=== PATIENT | male | born 1945 | race Caucasian/White ===

== ENCOUNTER 2017-08-13 02:46 | Inpatient (IN) | payer OTHER ==
[~2017-08-13] VITALS: Ht 177.8 cm; Wt 116.0 kg
[~2017-08-13 02:46] MED LIST: ACTOS15 MG PO; CARDIZEM CD240 MG PO; COUMADIN2.5 MG PO; SYNTHROID200 MCG PO; TENORMIN50 MG PO; ZOCOR20 MG PO; lopid
[2017-08-13 03:38] LABS: HEMOGLOBIN 12.5 G/DL (12.5-16.6); MCH 27.3 PG (29.0-34.0); MCHC 32.1 G/DL (30.0-36.0); MCV 85.2 FL (86-99); PLATELET COUNT 260 K/uL (156-360); RBC DIS.WIDTH-SD 48.9 % (39-53); RED BLOOD COUNT 4.58 M/uL (4.00-5.50); WHITE BLOOD COUNT 11.7 K/uL (4.1-10.2)
[2017-08-13 04:05] LABS: ALBUMIN 3.6 g/dL (3.2-4.8)
[2017-08-13 04:06] LABS: CHLORIDE 109 mEq/L (99-109); POTASSIUM 3.7 mEq/L (3.7-5.4); SODIUM 141 mEq/L (136-147)
[2017-08-13 04:08] LABS: GLUCOSE 109 mg/dL (70-99); TOTAL PROTEIN 7.6 g/dL (6.4-8.3)
[2017-08-13 04:10] LABS: TOTAL BILIRUBIN 1.6 mg/dL (0.0-1.0)
[2017-08-13 04:11] LABS: ALKALINE PHOSPHATASE 78 IU/L (3-129)
[2017-08-13 04:12] LABS: CREATININE 0.8 mg/dL (0.6-1.3); GFR ESTIMATE (CALCULATED) > 59 mL/min/ (58.99-99999)
[2017-08-13 04:13] LABS: AST (GOT) 17 IU/L (2-34); UREA NITROGEN (BUN) 11 mg/dL (9-23)
[2017-08-13 04:15] LABS: ALT (GPT) 8 IU/L (3-49); LIPASE 11 U/L (1.0-51.0)
[2017-08-13 04:16] LABS: TROP-I INTERPRETATION NEGATIVE; TROPONIN-I < 0.01 ng/mL (0.0-0.30)
[2017-08-13 04:31] LABS: PTT 46.2 SEC (25-37)
[2017-08-13 04:41] LABS: INTER. NORMALIZED RATIO 4.5
[2017-08-13 05:51] LABS: BASE EXCESS -1.8 mEq/L (-3 to +3); BICARBONATE 22.1 mEq/L (22-26); CARBOXY HGB 2.9 % (0-5); COMMENTS - BLOOD GASES C+; DEVICE HHFNC; FI02 100 %; METHEMOGLOBIN 1.1 % (0-1.5); O2 FLOW 50 L/MIN; PCO2 34 mm Hg (35-45); PO2 186 mm Hg (80-100); SITE LB; TOTAL RESP RATE 22 resp/min; pH 7.42 (7.35-7.45)
[2017-08-13] MEDS ORDERED: CARDIZEM CD360 MG PO (07:32)
[2017-08-13] MEDS ORDERED: SYNTHROID137 MCG PO (07:32)
[2017-08-13] MEDS ORDERED: DIOVAN80 MG PO (07:33)
[2017-08-13] MEDS ORDERED: CRESTOR10 MG PO (07:33)
[2017-08-13] MEDS ORDERED: LOPRESSOR100 M1 PO (07:33)
[2017-08-13] MEDS ORDERED: GLUCOPHAGE850 MG PO (07:33)
[2017-08-13] MEDS ORDERED: CYANOCOBAL1000 MCG/2 IM (07:34)
[2017-08-13] MEDS ORDERED: ULTRAM50 MG PO (07:34)
[2017-08-13 13:13] VITALS: BP 139/74
[2017-08-13 17:27] VITALS: BP 140/75
[2017-08-13 20:20] VITALS: BP 162/84
[2017-08-14 00:09] VITALS: BP 158/99
[2017-08-14 03:24] VITALS: BP 125/72
[2017-08-14 05:50] LABS: CHLORIDE 106 MEQ/L (99-109); CREATININE 0.8 MG/DL (0.6-1.3); GFR ESTIMATE (CALCULATED) > 59 mL/min/ (58.99-99999); GLUCOSE 111 mg/dL (70-99); POTASSIUM 3.3 MEQ/L (3.7-5.4); SODIUM 141 MEQ/L (136-147); UREA NITROGEN (BUN) 14 mg/dL (9-23)
[2017-08-14 08:58] VITALS: BP 138/61
[2017-08-14 09:55] LABS: THYROTROPIN (TSH) 4.1 MIU/L (0.4-5.5)
[2017-08-14 10:11] LABS: TROP-I INTERPRETATION NEGATIVE; TROPONIN-I 0.02 ng/mL (0.0-0.30)
[2017-08-14 12:46] VITALS: BP 115/74
[2017-08-14 15:21] LABS: TROP-I INTERPRETATION NEGATIVE; TROPONIN-I 0.02 ng/mL (0.0-0.30)
[2017-08-14 16:14] LABS: INTER. NORMALIZED RATIO 3.3
[2017-08-14 20:25] VITALS: BP 148/89
[2017-08-14 21:57] LABS: TROP-I INTERPRETATION NEGATIVE; TROPONIN-I 0.01 ng/mL (0.0-0.30)
[2017-08-14 22:53] VITALS: BP 114/65
[2017-08-15 05:03] VITALS: BP 140/89
[2017-08-15 05:40] LABS: BASOPHIL (%) 0.7 % (0-1); BASOPHIL COUNT 0.1 K/uL (0-0.1); EOSINOPHIL (%) 3.3 % (0-5); EOSINOPHIL COUNT 0.3 K/uL (0-0.3); HEMOGLOBIN 10.9 G/DL (12.5-16.6); IMMATURE GRANULOCYTE (%) 0.3 % (0.0-0.7); LYMPHOCYTE (%) 18.8 % (15-42); LYMPHOCYTE COUNT 1.4 K/uL (1.0-2.8); MCH 26.9 PG (29.0-34.0); MCHC 31.1 G/DL (30.0-36.0); MCV 86.4 FL (86-99); MONOCYTE (%) 8.7 % (3-12); MONOCYTE COUNT 0.7 K/uL (0-0.8); NEUTROPHIL (%) 68.2 % (45-76); NEUTROPHIL COUNT 5.2 K/uL (1.8-6.4); PLATELET COUNT 260 K/uL (156-360); RED BLOOD COUNT 4.05 M/uL (4.00-5.50); WHITE BLOOD COUNT 7.6 K/uL (4.1-10.2)
[2017-08-15 05:41] LABS: INTER. NORMALIZED RATIO 2.8
[2017-08-15 06:17] LABS: ALBUMIN 3.4 G/DL (3.2-4.8); ALKALINE PHOSPHATASE 67 IU/L (3-129); ALT (GPT) 16 IU/L (3-49); AST (GOT) 41 IU/L (2-34); CHLORIDE 105 MEQ/L (99-109); CREATININE 0.9 MG/DL (0.6-1.3); GFR ESTIMATE (CALCULATED) > 59 mL/min/ (58.99-99999); GLUCOSE 105 mg/dL (70-99); POTASSIUM 3.4 MEQ/L (3.7-5.4); SODIUM 142 MEQ/L (136-147); TOTAL BILIRUBIN 1.1 MG/DL (0.0-1.0); TOTAL PROTEIN 6.5 G/DL (6.4-8.3); UREA NITROGEN (BUN) 15 mg/dL (9-23)
[2017-08-15 08:12] VITALS: BP 115/58
[2017-08-15 10:06] LABS: HEMOGLOBIN A1c (GLYCOHEMOGLOB) 5.9 % (Below 5.7)
[2017-08-15 12:52] VITALS: BP 142/70
[2017-08-15 15:11] VITALS: BP 106/70
[2017-08-15 20:55] VITALS: BP 134/68
[2017-08-15 23:54] VITALS: BP 138/72
[2017-08-16 02:49] VITALS: BP 160/90
[2017-08-16 04:56] VITALS: BP 154/74
[2017-08-16 05:32] LABS: INTER. NORMALIZED RATIO 2.6
[2017-08-16 06:18] VITALS: BP 134/84
[2017-08-16 07:29] VITALS: BP 142/93
[2017-08-16 08:37] LABS: HEMATOCRIT 38.8 % (38.0-50.0); HEMOGLOBIN 11.9 G/DL (12.5-16.6); MCH 26.3 PG (29.0-34.0); MCHC 30.7 G/DL (30.0-36.0); MCV 85.7 FL (86-99); PLATELET COUNT 322 K/uL (156-360); RBC DIS.WIDTH-CV 15.7 % (11.8-14.6); RBC DIS.WIDTH-SD 48.8 % (39-53); RED BLOOD COUNT 4.53 M/uL (4.00-5.50); WHITE BLOOD COUNT 10.4 K/uL (4.1-10.2)
[2017-08-16 09:00] LABS: CHLORIDE 102 MEQ/L (99-109); CREATININE 0.9 MG/DL (0.6-1.3); GFR ESTIMATE (CALCULATED) > 59 mL/min/ (58.99-99999); SODIUM 136 MEQ/L (136-147); UREA NITROGEN (BUN) 18 mg/dL (9-23)
[2017-08-16 09:01] LABS: GLUCOSE 190 mg/dL (70-99); POTASSIUM 4.1 MEQ/L (3.7-5.4)
[2017-08-16 12:00] VITALS: BP 111/69
[2017-08-16 19:28] VITALS: BP 123/95
[2017-08-17 01:33] VITALS: BP 133/77
[2017-08-17 03:16] VITALS: BP 121/84
[2017-08-17 05:18] LABS: BASOPHIL (%) 0.1 % (0-1); EOSINOPHIL (%) 0 % (0-5); HEMATOCRIT 36.8 % (38.0-50.0); HEMOGLOBIN 11.8 G/DL (12.5-16.6); IMMATURE GRANULOCYTE (%) 0.8 % (0.0-0.7); LYMPHOCYTE (%) 4.7 % (15-42); LYMPHOCYTE COUNT 0.8 K/uL (1.0-2.8); MCH 27.3 PG (29.0-34.0); MCHC 32.1 G/DL (30.0-36.0); MONOCYTE (%) 1.5 % (3-12); MONOCYTE COUNT 0.2 K/uL (0-0.8); NEUTROPHIL (%) 92.9 % (45-76); NEUTROPHIL COUNT 15.3 K/uL (1.8-6.4); PLATELET COUNT 332 K/uL (156-360); RBC DIS.WIDTH-CV 15.8 % (11.8-14.6); RBC DIS.WIDTH-SD 48.5 % (39-53); RED BLOOD COUNT 4.33 M/uL (4.00-5.50); WHITE BLOOD COUNT 16.5 K/uL (4.1-10.2)
[2017-08-17 06:02] LABS: INTER. NORMALIZED RATIO 2.4
[2017-08-17 06:07] LABS: ALBUMIN 3.6 G/DL (3.2-4.8); ALKALINE PHOSPHATASE 80 IU/L (3-129); CHLORIDE 102 MEQ/L (99-109); GFR ESTIMATE (CALCULATED) > 59 mL/min/ (58.99-99999); GLUCOSE 162 mg/dL (70-99); POTASSIUM 4.1 MEQ/L (3.7-5.4); SODIUM 138 MEQ/L (136-147); TOTAL PROTEIN 6.9 G/DL (6.4-8.3); UREA NITROGEN (BUN) 20 mg/dL (9-23)
[2017-08-17 06:18] LABS: ALT (GPT) 83 IU/L (3-49); AST (GOT) 110 IU/L (2-34); TOTAL BILIRUBIN 0.6 MG/DL (0.0-1.0)
[2017-08-17 09:00] VITALS: BP 122/83
[2017-08-17 09:54] LABS: BASE EXCESS -0.7 mEq/L (-3 to +3); BICARBONATE 23.4 mEq/L (22-26); CARBOXY HGB 2.3 % (0-5); METHEMOGLOBIN 1.8 % (0-1.5); PCO2 36 mm Hg (35-45); PO2 39 mm Hg (80-100); pH 7.42 (7.35-7.45)
[2017-08-17 09:55] LABS: COMMENTS - BLOOD GASES A+C+; DEVICE NC; O2 FLOW 2 L/MIN; SITE LRAD; TOTAL RESP RATE 22 resp/min
[2017-08-17 11:45] VITALS: BP 120/88
[2017-08-17 13:29] LABS: BASE EXCESS -1.1 mEq/L (-3 to +3); BICARBONATE 23.5 mEq/L (22-26); CARBOXY HGB 2.7 % (0-5); COMMENTS - BLOOD GASES A+C+; DEVICE NC; METHEMOGLOBIN 1.6 % (0-1.5); O2 FLOW 4 L/MIN; PCO2 38 mm Hg (35-45); PO2 89 mm Hg (80-100); SITE LRAD; TOTAL RESP RATE 18 resp/min
[2017-08-17 16:44] VITALS: BP 118/86
[2017-08-17 19:29] VITALS: BP 136/90
[2017-08-18] VITALS: BP 132/64; BP 158/88
[2017-08-18 05:16] LABS: BASOPHIL (%) 0.1 % (0-1); EOSINOPHIL (%) 0 % (0-5); HEMATOCRIT 38.2 % (38.0-50.0); HEMOGLOBIN 12.1 G/DL (12.5-16.6); IMMATURE GRANULOCYTE (%) 0.5 % (0.0-0.7); LYMPHOCYTE (%) 6.6 % (15-42); MCH 27.1 PG (29.0-34.0); MCHC 31.7 G/DL (30.0-36.0); MCV 85.5 FL (86-99); MONOCYTE (%) 6.1 % (3-12); MONOCYTE COUNT 0.9 K/uL (0-0.8); NEUTROPHIL (%) 86.7 % (45-76); NEUTROPHIL COUNT 12.5 K/uL (1.8-6.4); PLATELET COUNT 289 K/uL (156-360); RBC DIS.WIDTH-CV 15.8 % (11.8-14.6); RBC DIS.WIDTH-SD 48.9 % (39-53); RED BLOOD COUNT 4.47 M/uL (4.00-5.50); WHITE BLOOD COUNT 14.5 K/uL (4.1-10.2)
[2017-08-18 05:24] LABS: INTER. NORMALIZED RATIO 2.4
[2017-08-18 05:50] LABS: ALBUMIN 3.3 G/DL (3.2-4.8); ALKALINE PHOSPHATASE 66 IU/L (3-129); ALT (GPT) 95 IU/L (3-49); AST (GOT) 82 IU/L (2-34); CHLORIDE 102 MEQ/L (99-109); GFR ESTIMATE (CALCULATED) > 59 mL/min/ (58.99-99999); GLUCOSE 142 mg/dL (70-99); POTASSIUM 3.8 MEQ/L (3.7-5.4); SODIUM 139 MEQ/L (136-147); TOTAL BILIRUBIN 0.5 MG/DL (0.0-1.0); TOTAL PROTEIN 6.6 G/DL (6.4-8.3); UREA NITROGEN (BUN) 29 mg/dL (9-23)
[2017-08-18 07:16] VITALS: BP 137/86
[2017-08-18 11:09] VITALS: BP 135/79
[2017-08-18 12:12] LABS: APPEARANCE CLEAR ((CLEAR)); BILIRUBIN NEGATIVE; BLOOD NEGATIVE; COLOR YELLOW ((YELLOW)); GLUCOSE (STRIP) NEGATIVE; KETONES NEGATIVE; LEUKOCYTES NEGATIVE; NITRITE NEGATIVE; PROTEIN (STRIP) NEGATIVE; SPECIFIC GRAVITY 1.014 (1.000-1.030); UCUL ADDED? NO; UROBILINOGEN 0.2 MG/DL (0.2-1.0)
[2017-08-18 15:39] VITALS: BP 155/76
[2017-08-18 20:00] VITALS: BP 131/70
[2017-08-19] VITALS (7 sets, daily range): BP systolic 130–151; BP diastolic 67–92
[2017-08-19 05:18] LABS: BASOPHIL (%) 0 % (0-1); EOSINOPHIL (%) 0.5 % (0-5); HEMATOCRIT 37.1 % (38.0-50.0); HEMOGLOBIN 11.4 G/DL (12.5-16.6); IMMATURE GRANULOCYTE (%) 0.5 % (0.0-0.7); LYMPHOCYTE (%) 19.9 % (15-42); LYMPHOCYTE COUNT 1.7 K/uL (1.0-2.8); MCH 26.7 PG (29.0-34.0); MCHC 30.7 G/DL (30.0-36.0); MCV 86.9 FL (86-99); MONOCYTE (%) 11.1 % (3-12); MONOCYTE COUNT 0.9 K/uL (0-0.8); NEUTROPHIL COUNT 5.7 K/uL (1.8-6.4); PLATELET COUNT 253 K/uL (156-360); RBC DIS.WIDTH-CV 15.7 % (11.8-14.6); RBC DIS.WIDTH-SD 49.6 % (39-53); RED BLOOD COUNT 4.27 M/uL (4.00-5.50); WHITE BLOOD COUNT 8.4 K/uL (4.1-10.2)
[2017-08-19 05:38] LABS: INTER. NORMALIZED RATIO 2.6
[2017-08-19 06:02] LABS: ALBUMIN 3.1 G/DL (3.2-4.8); ALKALINE PHOSPHATASE 65 IU/L (3-129); ALT (GPT) 122 IU/L (3-49); AST (GOT) 108 IU/L (2-34); CHLORIDE 108 MEQ/L (99-109); GFR ESTIMATE (CALCULATED) > 59 mL/min/ (58.99-99999); GLUCOSE 133 mg/dL (70-99); POTASSIUM 3.8 MEQ/L (3.7-5.4); SODIUM 143 MEQ/L (136-147); TOTAL BILIRUBIN 0.4 MG/DL (0.0-1.0); TOTAL PROTEIN 6.4 G/DL (6.4-8.3); UREA NITROGEN (BUN) 26 mg/dL (9-23)
[2017-08-19 15:22] LABS: BASE EXCESS 1.1 mEq/L (-3 to +3); BICARBONATE 25.1 mEq/L (22-26); CARBOXY HGB 2.6 % (0-5); COMMENTS - BLOOD GASES A+C+; DEVICE NC; METHEMOGLOBIN 1.2 % (0-1.5); O2 FLOW 2 L/MIN; PCO2 37 mm Hg (35-45); PO2 68 mm Hg (80-100); SITE LR; pH 7.44 (7.35-7.45)
[2017-08-20 03:48] VITALS: BP 133/63
[2017-08-20 05:15] LABS: INTER. NORMALIZED RATIO 2.4
[2017-08-20 07:45] VITALS: BP 159/80
[2017-08-20] MEDS ORDERED: DOXYCYCLINE HY100 M3 PO (10:55)
[2017-08-20] MEDS ORDERED: LOPRESSOR100 M1 PO (10:56)
[2017-08-20] MEDS ORDERED: SPIRIVA RESPIMAT4 GM IH (10:56)
[2017-08-20] MEDS ORDERED: DIGOXIN250 MCG PO (10:56)
[2017-08-20] MEDS ORDERED: TRAZODONE HCL50 MG PO (10:57)
[2017-08-20] MEDS ORDERED: KLOR-CON M1010 MEQ PO (10:57)
[2017-08-20] MEDS ORDERED: CARDIZEM CD360 MG PO (10:57)
[2017-08-20] MEDS ORDERED: FUROSEMIDE40 MG PO (10:57)
[2017-08-20] MEDS ORDERED: ADVAIR 100/501 DISK IH (10:58)
[2017-08-20] MEDS ORDERED: DUONEB 2.5-0.5 M3 ML AEROSOL (10:58)
[2017-08-20] MEDS ORDERED: AERONEB GO NEB1 EACH MC (10:59)
[2017-08-20 12:12] VITALS: BP 145/90
== END 2017-08-20 12:36 | disposition home or self-care (01) | DRG 189 ==
LOC: EME 02:46 → 4EAST 07:50 → EDOF 07:50 → ENRESERV 07:51 → 4EAST 12:48
PROVIDERS: Emergency Medicine; Hospitalist; Internal Medicine Pulmonary Disease
DX: J96.01 Acute respiratory failure with hypoxia (principal); J18.9 Pneumonia, unspecified organism; E87.2 Acidosis; I50.9 Heart failure, unspecified; I48.2 Chronic atrial fibrillation; R79.1 Abnormal coagulation profile; T45.515A Adverse effect of anticoagulants, initial encounter; E03.9 Hypothyroidism, unspecified; E11.9 Type 2 diabetes mellitus without complications; E78.5 Hyperlipidemia, unspecified; E66.01 Morbid (severe) obesity due to excess calories; F17.290 Nicotine dependence, other tobacco product, uncomplicated; F43.22 Adjustment disorder with anxiety; G47.00 Insomnia, unspecified; I11.0 Hypertensive heart disease with heart failure; I35.0 Nonrheumatic aortic (valve) stenosis; J06.9 Acute upper respiratory infection, unspecified; J84.10 Pulmonary fibrosis, unspecified; Z79.01 Long term (current) use of anticoagulants; Z79.84 Long term (current) use of oral hypoglycemic drugs; Z68.36 Body mass index [BMI] 36.0-36.9, adult; Z79.51 Long term (current) use of inhaled steroids; Z80.0 Family history of malignant neoplasm of digestive organs; Z82.49 Family history of ischemic heart disease and other diseases of the circulatory system
CPT/HCPCS: 36600; 71045; 71046; 71250; 80048; 80053; 81003; 82803; 82948; 83036; 83605; 83690; 83880; 84145 90; 84443; 84484; 85025; 85027; 85610; 85730; 87040; 87449; 87502; 93005; 93306; 94010; 94640; 94640 76; 94667; 94668; 94760; 94799; 99202; 99281; 99285; J0295; J0692; J0696; J1160; J1815; J1940; J2920; J2930; J7050